=== PATIENT | male | born 1995 | race Two or more races ===

== ENCOUNTER 2017-04-02 10:56 | Emergency (ER) | payer OTHER, SELFPAY ==
[~2017-04-02] VITALS: Ht 172.7 cm; Wt 67.0 kg
[2017-04-02 10:58] VITALS: BP 123/69
== END 2017-04-02 11:55 | disposition home or self-care (01) ==
LOC: ED 11:49
DX: J02.9 Acute pharyngitis, unspecified (principal); J00 Acute nasopharyngitis [common cold]
CPT/HCPCS: 71046; 87081; 87880; 99285